=== PATIENT | female | born 1945 | race African-American/Black ===

== ENCOUNTER 2016-07-03 16:57 | Emergency (ER) | payer MEDICARE, OTHER ==
[2016-07-03] MEDS ORDERED: Aspirin Low Dose CHEW TAB* 81 MG PO ONE (17:20)
[2016-07-03] MEDS ORDERED: Adenosine* 3 MG/ML VIAL ONE (17:33)
--- NOTE | 2016-07-03 17:58 | RAD ---
Indication: Supraventricular tachycardia. Single frontal view of the chest performed at 1732 hours was reviewed. Comparison is made with previous exam dated March 16, 2015. No mediastinal shift is noted. Heart is at the upper limits of normal in size. Lung giron appear clear. No pleural fluid, pneumonia or pneumothorax is noted. IMPRESSION: NO ACTIVE CARDIOPULMONARY DISEASE IS NOTED.
[2016-07-03 18:19] LABS: Hematocrit 42 % (35-47); Hemoglobin 13.9 g/dl (12.0-16.0); Mean Corpuscular HGB Conc 33 g/dl (31-36); Mean Corpuscular Hemoglobin 31 pg (27-31); Mean Corpuscular Volume 94 fL (80-97); Mean Platelet Volume 8 um3 (7.4-10.4); Red Cell Distribution Width 15 % (10.5-15); White Blood Count 6.9 10^3/ul (3.5-10.8)
[2016-07-03] MEDS ORDERED: Adenosine* 3 MG/ML VIAL IV PUSH ONE (18:29)
[2016-07-03 18:32] LABS: Albumin 4.2 g/dL (3.2-5.2); BUN/Creatinine Ratio 17.5 (8-20); Calcium 9.5 mg/dL (8.6-10.3); EGFR African American 72.4 (>60); EGFR Non-African American 56.3 (>60); Globulin 2.8 g/dL (2-4); Potassium 3.9 mmol/L (3.5-5.0); Total Bilirubin 1.1 mg/dL (0.2-1.0)
[2016-07-03 18:41] LABS: Troponin I 0.04 ng/mL (<0.04)
[2016-07-03 18:43] LABS: TSH (Thyroid Stimulating Horm) 2.34 mcIU/mL (0.34-5.60)
[2016-07-03 18:49] LABS: Free T4 1.09 ng/dL (0.61-1.12)
[2016-07-03 19:36] VITALS: BP 100/61
--- NOTE | 2016-07-12 11:08 | ED ---
Nupur Og Matthew, scribed for Jason Carey MD on 07/03/16 at 1819 . Palpitations / Dysrhythmia - HPI Summary HPI Summary: A 71 y/o female presents to the ED with palpitations since early in the morning today. The patient had a similar episodes on 06/30/16 and yesterday. The patient has had similar episodes in the past and is prescribed metoprolol by her PCP. Associated symptoms include diarrhea, chest pain - described as pressure, lightheadedness, and SOB. She has an appointment with Dr. Wayne on July 16. - History of Current Complaint Chief Complaint: EDDysrhythmPalp Time Seen by Provider: 07/03/16 17:20 Hx Obtained From: Patient Onset/Duration: Sudden Onset, Lasting Days, Still Present Timing: Constant Severity Initially: Moderate Severity Currently: Moderate Character: Fast Associated Signs & Symptoms: Lightheadedness, Chest Pain - described as pressure , Shortness of Breath - Allergy/Home Medications Allergies/Adverse Reactions: Allergies Allergy/AdvReac Type Severity Reaction Status Date / Time No Known Allergies Allergy Verified 03/16/15 09:01 PMH/Surg Hx/FS Hx/Imm Hx Endocrine/Hematology History: Reports: Hx Thyroid Disease Denies: Hx Diabetes Cardiovascular History: Reports: Hx Hypertension Respiratory History: Denies: Hx Asthma, Hx Chronic Obstructive Pulmonary Disease (COPD) GI History: Denies: Hx Ulcer - Cancer History Hx Chemotherapy: No Hx Radiation Therapy: No - Surgical History Surgery Procedure, Year, and Place: 2007 small bowel obstruction Infectious Disease History: No Infectious Disease History: Reports: Hx Shingles Denies: Hx Hepatitis, Hx Human Immunodeficiency Virus (HIV), History Other Infectious Disease, Traveled Outside the [place] in Last 30 Days - Family History Family History: No FHx of breast CA - Social History Alcohol Use: Rare Substance Use Type: Reports: None Smoking Status (MU): Never Smoked Tobacco Review of Systems Constitutional: Negative Negative: Fever, Chills Eyes: Negative Negative: Erythema ENT: Negative Negative: Sore Throat Positive: Palpitations, Chest Pain - described as pressure Respiratory: Negative Negative: Shortness Of Breath Gastrointestinal: Negative Positive: Diarrhea. Negative: Abdominal Pain, Vomiting, Nausea Genitourinary: Negative Negative: dysuria, hematuria Musculoskeletal: Negative Negative: Myalgia, Edema Skin: Negative Negative: Rash Neurological: Other - lightheadedness Psychological: Normal All Other Systems Reviewed And Are Negative: Yes Physical Exam Triage Information Reviewed: Yes Vital Signs On Initial Exam: Initial Vitals Temp Pulse Resp BP Pulse Ox 97.5 F 162 22 97/71 100 07/03/16 16:58 07/03/16 16:58 07/03/16 16:58 07/03/16 16:58 07/03/16 16:58 Vital Signs Reviewed: Yes Appearance: Positive: Well-Appearing, No Pain Distress Skin: Positive: Warm, Dry Head/Face: Positive: Other - Normocephalic; Atraumatic Eyes: Positive: Conjunctiva Clear Neck: Positive: No Lymphadenopathy, Other: - Full ROM; No JVD Respiratory/Lung Sounds: Positive: Breath Sounds Present, Other - Normal Effort. Negative: Rales, Rhonchi, Stridor, Tracheal Deviation, Wheezes Cardiovascular: Positive: Pulses are Symmetrical in both Upper and Lower Extremities, Tachycardia Abdomen Description: Positive: Nontender, Soft, Other: - NO rebound. Negative: Distended, Guarding Bowel Sounds: Positive: Present Musculoskeletal: Negative: Edema Left, Edema Right Neurological: Positive: Alert, Oriented to Person Place, Time Psychiatric: Positive: Affect/Mood Appropriate Diagnostics - Vital Signs Vital Signs Temp Pulse Resp BP Pulse Ox 07/03/16 16:58 97.5 F 162 22 97/71 100 - Laboratory Result Diagrams: 07/03/16 17:30 07/03/16 17:30 Lab Statement: Any lab studies that have been ordered have been reviewed, and results considered in the medical decision making process. - Radiology CXR Xray Interpretation: No Acute Changes - IMPRESSION: NO ACTIVE CARDIOPULMONARY DISEASE IS NOTED. Radiology Interpretation Completed By: Radiologist - EKG 17:42 Cardiac Rate: NL - 73 bpm EKG Rhythm: Sinus Rhythm ST Segment: Normal Ectopy: PVCs - Occasional 17:05 Cardiac Rate: Tachycardia - 151 bpm EKG Rhythm: SVT EKG Interpretation: No STEMI Course/Dx - Course Assessment/Plan: A 71 y/o female presents to the ED with palpitations since early in the morning today. She has had these episodes in the past and has needed to present to the ED. She is prescribed Metoprolol by her PCP. Labs were reviewed. EKG showed SVT at 151 bpm. In the ED course, the patient was given adenosine and her heart rate stabilized in the 100s. The second EKG showed sinus rhythm at 73 bpm. Discussed the case with Dr. Mcguire who recommended the patient take Metoprolol XL in the morning. She will be discharged home to follow -up with her PCP in 2 days. - Diagnoses Provider Diagnoses: SVT (supraventricular tachycardia) Discharge - Discharge Plan Condition: Stable Disposition: HOME Patient Education Materials: Supraventricular Tachycardia (ED) Referrals: Cesilia Suazo MD [Primary Care Provider] - 2 Days Additional Instructions: Please follow-up with your primary care physician in 2 days. Begin taking your Metoprolol XL in the morning. The documentation as recorded by the Nupur rabago Matthew accurately reflects the service I personally performed and the decisions made by me, Jason Carey MD.
== END 2016-07-03 19:15 | disposition home or self-care (01) ==
LOC: ED 16:57
DX: I47.1 Supraventricular tachycardia (principal); R42 Dizziness and giddiness; R07.9 Chest pain, unspecified; R06.02 Shortness of breath; R00.2 Palpitations
CPT/HCPCS: 36415; 71010; 80053; 83605; 84439; 84443; 84484; 85025; 93005; 96374; 99284; A9270-GY; J0153

== ENCOUNTER 2016-07-04 15:54 | Inpatient (IN) | payer MEDICARE, OTHER ==
[2016-07-04] MEDS ORDERED: NS 0.9% 1000 ML* 2,000 ML IV ONE (16:18)
[2016-07-04] MEDS ORDERED: Adenosine* 3 MG/ML VIAL IV PUSH ONE (16:19)
[2016-07-04 16:36] LABS: Hematocrit 43 % (35-47); Hemoglobin 14.1 g/dl (12.0-16.0); Mean Corpuscular HGB Conc 33 g/dl (31-36); Mean Corpuscular Hemoglobin 31 pg (27-31); Mean Corpuscular Volume 94 fL (80-97); Mean Platelet Volume 8 um3 (7.4-10.4); Red Blood Count 4.58 10^6/ul (4.0-5.4); Red Cell Distribution Width 15 % (10.5-15); White Blood Count 5.5 10^3/ul (3.5-10.8)
[2016-07-04] MEDS ORDERED: Metoprolol Tartrate IV* 1 MG/ML 5 ML VIAL IV ONE (16:45)
[2016-07-04 16:52] LABS: ALT 34 U/L (7-52); AST 34 U/L (13-39); Albumin 4.1 g/dL (3.2-5.2); Alkaline Phosphatase 75 U/L (34-104); Anion Gap 9 mmol/L (2-11); BUN/Creatinine Ratio 17.7 (8-20); Blood Urea Nitrogen 17 mg/dL (6-24); C Reactive Protein < 1.00 mg/L (< 5.00); CO2 Carbon Dioxide 22 mmol/L (22-32); Calcium 9.5 mg/dL (8.6-10.3); Chloride 109 mmol/L (101-111); Creatine Kinase 127 U/L (10-223); EGFR African American 73.3 (>60); Globulin 2.8 g/dL (2-4); Glucose 117 mg/dL (70-100); Lipase 30 U/L (11.0-82.0); Magnesium 1.9 mg/dL (1.9-2.7); Potassium 3.8 mmol/L (3.5-5.0); Sodium 140 mmol/L (133-145); Total Protein 6.9 g/dL (6.4-8.9)
[2016-07-04 16:53] LABS: Troponin I 0.03 ng/mL (<0.04)
[2016-07-04] MEDS ORDERED: Diltiazem IV VIAL* 125 MG/25 ML VIAL ONE (17:04)
[2016-07-04] MEDS ORDERED: Diltiazem IV* 5 MG/ML 5 ML VIAL (for loading dose/IV Push) (25 MG) IV SLOW PU ONE (17:16)
[2016-07-04 17:19] LABS: TSH (Thyroid Stimulating Horm) 1.45 mcIU/mL (0.34-5.60)
[2016-07-04] MEDS ORDERED: Metoprolol Tartrate IV* 1 MG/ML 5 ML VIAL IV PRN (17:48)
[2016-07-04] MEDS ORDERED: NS 0.9% 500 ML BAG* 500 ML IV ONE (17:51)
[2016-07-04] MEDS ORDERED: Potassium Chlor TAB* 20 MEQ TAB.ER PO ONE (17:52)
[2016-07-04] MEDS ORDERED: Magnesium Oxide TAB* 400 MG PO ONE (17:52)
[2016-07-04] MEDS ORDERED: Diltiazem IV VIAL* 125 MG in D5W 100 ML BAG* 100 ML IV SCH (18:00)
[2016-07-04] MEDS ORDERED: Albuterol 2.5 MG/3 ML NEB.SOL* (0.083%) INH PRN (18:07)
[2016-07-04] MEDS ORDERED: Mometasone/Formoter 200/5 MDI INH PRN (18:07)
--- NOTE | 2016-07-04 19:57 | ED ---
Chaya Og Erika, scribed for Reid Chi MD on 07/04/16 at 1728 . Palpitations / Dysrhythmia - HPI Summary HPI Summary: Patient is a 71-year-old female presenting to the ED with a CC of palpitations starting at 15:30 today. Patient reports that she has had similar symptoms for the past few days, and was seen here and given adenosine, but symptoms returned. Associated symptoms include lightheadedness and SOB. Patient denies chest pain. Pt denies Hx CHF, and denies recent illness. Patient has an appointment with Dr. Wayne on 07/15/2016, but has not seen him before. - History of Current Complaint Chief Complaint: EDDysrhythmPalp Time Seen by Provider: 07/04/16 16:11 Hx Obtained From: Patient Onset/Duration: Lasting Hours, Still Present Timing: Constant Severity Currently: Moderate Alleviating: Nothing Associated Signs & Symptoms: Lightheadedness, Shortness of Breath - Allergy/Home Medications Allergies/Adverse Reactions: Allergies Allergy/AdvReac Type Severity Reaction Status Date / Time No Known Allergies Allergy Verified 03/16/15 09:01 Home Medications: Home Medications Albuterol 2.5MG/3ML (0.083%)* [Ventolin 2.5 MG/3 ML NEB.KIM*] 2.5 mg INH QID PRN 07/04/16 [History Confirmed 07/04/16] Albuterol Sulfate [Proair Respiclick] 2 puff INH QID PRN 07/04/16 [History Confirmed 07/04/16] Atorvastatin* [Lipitor*] 20 mg PO DAILY 07/04/16 [History Confirmed 07/04/16] Fluticasone NASAL SPRAY 50MCG* [Flonase NASAL SPRAY 50MCG*] 2 spray BOTH NARES DAILY 07/04/16 [History Confirmed 07/04/16] Ipratropium [place] (Nasal) [Ipratropium [place]] 0.03 % BOTH NARES QID PRN [History Confirmed 07/04/16] Levothyroxine TAB* [Synthroid TAB*] 50 mcg PO DAILY 07/04/16 [History Confirmed 07/04/16] Mometasone/Formoter 200/5 MDI* [Dulera 200/5 MDI*] 2 puff INH BID PRN 07/04/16 [ History Confirmed 07/04/16] Sertraline* [Zoloft*] 75 mg PO DAILY 07/04/16 [History Confirmed 07/04/16] PMH/Surg Hx/FS Hx/Imm Hx Endocrine/Hematology History: Reports: Hx Thyroid Disease Denies: Hx Diabetes Cardiovascular History: Reports: Hx Hypertension Respiratory History: Denies: Hx Asthma, Hx Chronic Obstructive Pulmonary Disease (COPD) GI History: Denies: Hx Ulcer - Cancer History Hx Chemotherapy: No Hx Radiation Therapy: No - Surgical History Surgery Procedure, Year, and Place: 2007 small bowel obstruction Infectious Disease History: No Infectious Disease History: Reports: Hx Shingles Denies: Hx Hepatitis, Hx Human Immunodeficiency Virus (HIV), History Other Infectious Disease, Traveled Outside the [place] in Last 30 Days - Family History Family History: No FHx breast cancer - Social History Alcohol Use: Rare Substance Use Type: Reports: None Smoking Status (MU): Former Smoker Review of Systems Positive: Palpitations. Negative: Chest Pain Positive: Shortness Of Breath Neurological: Other - lightheadedness All Other Systems Reviewed And Are Negative: Yes Physical Exam Triage Information Reviewed: Yes Vital Signs On Initial Exam: Initial Vitals Temp Pulse Resp BP Pulse Ox 97.2 F 167 24 129/76 100 07/04/16 15:56 07/04/16 15:56 07/04/16 15:56 07/04/16 15:56 07/04/16 15:56 Vital Signs Reviewed: Yes Appearance: Positive: Well-Appearing, No Pain Distress Skin: Positive: Warm, Skin Color Reflects Adequate Perfusion, Dry Head/Face: Positive: Normal Head/Face Inspection Eyes: Positive: EOMI, DARYN ENT: Positive: Normal ENT inspection Neck: Positive: Supple, Nontender Respiratory/Lung Sounds: Positive: Clear to Auscultation, Breath Sounds Present Cardiovascular: Positive: Tachycardia - at 167 bpm on triage Abdomen Description: Positive: Nontender, Soft Bowel Sounds: Positive: Present Musculoskeletal: Positive: Normal, Strength/ROM Intact Neurological: Positive: Normal, Sensory/Motor Intact, Alert, Oriented to Person Place, Time Psychiatric: Positive: Anxious Diagnostics - Vital Signs Vital Signs Temp Pulse Resp BP Pulse Ox 07/04/16 15:56 97.2 F 167 24 129/76 100 - Laboratory Lab Results: Lab Results 07/04/16 07/04/16 07/04/16 Range/Units 16:22 16:22 16:22 WBC 5.5 (3.5-10.8) 10^3/ul RBC 4.58 (4.0-5.4) 10^6/ul Hgb 14.1 (12.0-16.0) g/dl Hct 43 (35-47) % MCV 94 (80-97) fL MCH 31 (27-31) pg MCHC 33 (31-36) g/dl RDW 15 (10.5-15) % Plt Count 231 (150-450) 10^3/ul MPV 8 (7.4-10.4) um3 Neut % (Auto) 30.7 L (38-83) % Lymph % (Auto) 53.9 H (25-47) % [place] % (Auto) 12.3 H (1-9) % Eos % (Auto) 1.8 (0-6) % Baso % (Auto) 1.3 (0-2) % Absolute Neuts (auto) 1.7 (1.5-7.7) 10^3/ul Absolute Lymphs (auto) 3.0 (1.0-4.8) 10^3/ul Absolute Monos (auto) 0.7 (0-0.8) 10^3/ul Absolute Eos (auto) 0.1 (0-0.6) 10^3/ul Absolute Basos (auto) 0.1 (0-0.2) 10^3/ul Absolute Nucleated RBC 0.01 10^3/ul Nucleated RBC % 0.2 INR (Anticoag Therapy) 0.90 (0.89-1.11) APTT 27.0 (26.0-36.3) seconds D-Dimer, Quantitative 674 H (Less Than 230) ng/mL Sodium 140 (133-145) mmol/L Potassium 3.8 (3.5-5.0) mmol/L Chloride 109 (101-111) mmol/L Carbon Dioxide 22 (22-32) mmol/L Anion Gap 9 (2-11) mmol/L BUN 17 (6-24) mg/dL Creatinine 0.96 H (0.51-0.95) mg/dL Est GFR ( Amer) 73.3 (>60) Est GFR (Non-Af Amer) 57.0 (>60) BUN/Creatinine Ratio 17.7 (8-20) Glucose 117 H (70-100) mg/dL Lactic Acid (0.5-2.0) mmol/L Calcium 9.5 (8.6-10.3) mg/dL Magnesium 1.9 (1.9-2.7) mg/dL Total Bilirubin 1.30 H (0.2-1.0) mg/dL AST 34 (13-39) U/L ALT 34 (7-52) U/L Alkaline Phosphatase 75 (34-104) U/L Total Creatine Kinase 127 (10-223) U/L CK-MB (CK-2) 5.4 (0.6-6.3) ng/mL Troponin I 0.03 (<0.04) ng/mL C-Reactive Protein < 1.00 (< 5.00) mg/L B-Natriuretic Peptide ( - 100) pg/mL Total Protein 6.9 (6.4-8.9) g/dL Albumin 4.1 (3.2-5.2) g/dL Globulin 2.8 (2-4) g/dL Albumin/Globulin Ratio 1.5 (1-3) Lipase 30 (11.0-82.0) U/L TSH 1.45 (0.34-5.60) mcIU/mL 07/04/16 07/04/16 Range/Units 16:22 16:22 WBC (3.5-10.8) 10^3/ul RBC (4.0-5.4) 10^6/ul Hgb (12.0-16.0) g/dl Hct (35-47) % MCV (80-97) fL MCH (27-31) pg MCHC (31-36) g/dl RDW (10.5-15) % Plt Count (150-450) 10^3/ul MPV (7.4-10.4) um3 Neut % (Auto) (38-83) % Lymph % (Auto) (25-47) % [place] % (Auto) (1-9) % Eos % (Auto) (0-6) % Baso % (Auto) (0-2) % Absolute Neuts (auto) (1.5-7.7) 10^3/ul Absolute Lymphs (auto) (1.0-4.8) 10^3/ul Absolute Monos (auto) (0-0.8) 10^3/ul Absolute Eos (auto) (0-0.6) 10^3/ul Absolute Basos (auto) (0-0.2) 10^3/ul Absolute Nucleated RBC 10^3/ul Nucleated RBC % INR (Anticoag Therapy) (0.89-1.11) APTT (26.0-36.3) seconds D-Dimer, Quantitative (Less Than 230) ng/mL Sodium (133-145) mmol/L Potassium (3.5-5.0) mmol/L Chloride (101-111) mmol/L Carbon Dioxide (22-32) mmol/L Anion Gap (2-11) mmol/L BUN (6-24) mg/dL Creatinine (0.51-0.95) mg/dL Est GFR ( Amer) (>60) Est GFR (Non-Af Amer) (>60) BUN/Creatinine Ratio (8-20) Glucose (70-100) mg/dL Lactic Acid 2.5 H* (0.5-2.0) mmol/L Calcium (8.6-10.3) mg/dL Magnesium (1.9-2.7) mg/dL Total Bilirubin (0.2-1.0) mg/dL AST (13-39) U/L ALT (7-52) U/L Alkaline Phosphatase (34-104) U/L Total Creatine Kinase (10-223) U/L CK-MB (CK-2) (0.6-6.3) ng/mL Troponin I (<0.04) ng/mL C-Reactive Protein (< 5.00) mg/L B-Natriuretic Peptide 300 H ( - 100) pg/mL Total Protein (6.4-8.9) g/dL Albumin (3.2-5.2) g/dL Globulin (2-4) g/dL Albumin/Globulin Ratio (1-3) Lipase (11.0-82.0) U/L TSH (0.34-5.60) mcIU/mL Result Diagrams: 07/04/16 16:22 07/04/16 16:22 Lab Statement: Any lab studies that have been ordered have been reviewed, and results considered in the medical decision making process. - EKG 16:05 Cardiac Rate: Tachycardia - at 160 bpm EKG Rhythm: SVT 16:33 Cardiac Rate: NL - at 68 bpm EKG Rhythm: Sinus Rhythm Ectopy: PVCs, PACs EKG Interpretation: ST elevation in V1 and V2 16:35 Cardiac Rate: NL - at 67 bpm EKG Rhythm: Sinus Rhythm Ectopy: PACs EKG Interpretation: ST elevation in V1 and V2 17:27 Cardiac Rate: Bradycardia - at 48 bpm EKG Rhythm: Sinus Bradycardia Ectopy: None EKG Interpretation: ST elevation V1 and V2. Flipped T waves in III and aVF Re-Evaluation - Re-Evaluation First Eval Re-Evaluation Time: 16:30 Comment: Present for adenosine Course/Dx - Course Assessment/Plan: DR MANDUJANO SAW PATIENT IN ED. ADMIT HOSPITALIST STABLE. - Diagnoses Provider Diagnoses: SVT (supraventricular tachycardia) - Physician Notifications Discussed Care Of Patient With: Dr. Mandujano (cardiology) at 16:45 - recommends admission. Dr. Muro (hospitalist) at 16:49 - agrees to admit - Critical Care Time Critical Care Time: 30-74 min Discharge - Discharge Plan Condition: Stable Disposition: ADMITTED TO [facility] documentation as recorded by the Chaya rabago Erika accurately reflects the service I personally performed and the decisions made by me, Reid Chi MD.
[2016-07-04] MEDS: Enoxaparin(*) 40 MG/0.4 ML SYR SUBCUT SCH (21:06)
[2016-07-04] MEDS: Diltiazem CD CAP* 120 MG PO SCH (21:06)
--- NOTE | 2016-07-04 23:32 | CONS ---
CARDIOLOGY CONSULTATION: DATE OF CONSULT: 07/04/16 PRIMARY DOCTOR: Dr. Suazo. CONSULTING PHYSICIAN: Dr. Chi. REASON FOR EVALUATION: SVTs with symptoms. HISTORY OF PRESENT ILLNESS: This is a very pleasant 71-year-old woman with a longstanding history of intermittent palpitation dating back more than 25 years. She says these can occur several times in a day and then not again for a month or two. They usually last a few minutes and resolve. She has some mild lightheadedness and shortness of breath with them. However, they have been coming more frequent over the last week or so. She has been treated with Toprol 100 mg a day for many years. She does not think it has been very successful in controlling her symptoms. Last Saturday, it lasted all day and then resolved on its own. Yesterday, it occurred again all day and she came to the emergency room. She was found to be in SVT, was given adenosine, and told to take a Toprol in the morning rather than in the evening. She went home and woke up today, had a breakfast, and then had some jam. About midday at about 0330, started to feel racing heartbeat, lightheadedness, dizziness, shortness of breath, no chest discomfort. Because of symptoms, she came to the emergency room was found to be in SVT. She was given Adenocard 6 mg but converted right back to SVT after only a minute or two in sinus rhythm. She subsequently was given IV Lopressor 5 mg and a repeat challenge with adenosine. Again, she only converted to sinus rhythm for a short period of time. Subsequently, I gave her IV diltiazem 20 mg IV bolus and then 5 mg an hour drip and she has converted to and maintained an atrial rhythm with what appears to be an ectopic atrial bradycardia at 48 with rsr prime in V1, V2. She is feeling better now. She has had no coffee in the last 4 days, but was having a cup occasionally. She denies alcohol use. She has a history of tobacco use discontinued in 2007. She has a history of diet controlled diabetes and a history of asthma. PAST MEDICAL HISTORY: Includes small bowel obstruction in 2007. She had a thyroidectomy many years ago. She said she had some mild diarrhea yesterday, but no fevers, chills, sweats. No hematemesis, hematochezia. No dysuria. No abdominal pain. No orthopnea. No peripheral edema. MEDICATIONS: Include: 1. Atrovent. 2. Fluticasone. 3. Levothyroxine 50 mcg a day. 4. Atorvastatin 20 mg a day. 5. Zoloft 75 mg a day. 6. Metoprolol XL succinate 100 mg q.a.m. SOCIAL HISTORY: She said she is pretty active and lives on her own. She does not drive, but takes [employer] or [employer] and walks around the mall for hours at a time. Shopping and walks and takes care of her own chores in household. She is single, lives alone. She has 4 adult children, 2 boys and 2 girls. Her daughter, Christine, and her son, Ramon, were at the bedside. REVIEW OF SYSTEMS: Review of systems x10 was negative except as above. PHYSICAL EXAMINATION: She is a well-developed, well-nourished female, - [place], in no apparent distress. Pulse of 51, blood pressure 121/68, O2 sats 100% on room air. Atraumatic, normocephalic. Extraocular muscles are intact. Sclerae anicteric. No significant JVD. Cardiac: S1, S2. No clear murmurs, gallops, or rubs. Chest was clear with decreased breath sounds with prolonged expiratory phase. No CVAT. Abdomen: Bowel sounds present. Nontender. No hepatosplenomegaly. Extremities: Femoral pulses intact without bruits. Distal pulses intact. No edema. Motor strength 5/5 bilaterally. Deep tendon reflexes are 2/4. Alert and oriented x3. DIAGNOSTIC STUDIES/LAB DATA: Labs include normal CBC. Sodium of 140, potassium at 3.8, down from 3.9 yesterday. Lactic acid elevated at 2.5. BUN is 17, creatinine of 0.96. CRP of less than 1. BNP of 300. D-dimer is 674. White count of 5.5, hemoglobin of 14.1, hematocrit of 43, platelet count 234. Chest x-ray from yesterday revealed no active cardiopulmonary disease. Pulmonary function test from 05/30/15 revealed evidence of air trapping, diffuse and mildly decreased, significant improvement in small airways in response to bronchodilators, not suggestive of obstructive or respiratory defect. She had an echocardiogram in 2008. The report is not available at this time. Her EKG reveals narrow complex tachycardia with nonspecific ST depressions at 154, possible T-waves following the QRS with a short RP interval raising the possibility of AV castro reentry tachycardia. EKG from 03/16/15 revealed sinus bradycardia with an RSR prime in V1 and actual similar complexes , but less T-wave flattening at that time. IMPRESSION: My impression is that Ms. Bermudez appears to have paroxysmal supraventricular tachycardia, which is symptomatic and longstanding but appears to be increased recently for no obvious reason. She does not appear to be adequately controlled on her Toprol and she did seem to respond to the diltiazem. I did discuss with her and her family potential treatment options including adjustment of her medications with using diltiazem and perhaps digoxin as well as possible antiarrhythmics or referral for EP study and ablation. At this point, I recommend the followin. We will try tapering her slowly off her beta-rashaun, decreasing her Toprol to 25 mg twice a day. 2. We will add a low dose of oral diltiazem 120 CD and gradually taper her off her IV diltiazem. 3. We will have to watch for hypotension and bradycardia. 4. If she failed to have control of her symptoms with that regimen, we will have to consider advancing her diltiazem or perhaps adding digoxin. 5. We will consider the possibility of referral for EP evaluation as an outpatient. 6. I would try to maintain a potassium over 4. 7. I would obtain an echo. 8. She did have an elevated D-dimer of unclear etiology. We will discuss with Dr. Camejo and consider possibility of further evaluation as needed. Given her lack of hypoxemia or cp or other evidence of PE, would follow for now. 9. The EKG changes of tachycardia are nonspecific but at some point, it make the worth considering a screen for ischemia with a pharmacologic stress test. [id number]/[facility] #: [id number] [facility]ENTER[facility]oe
--- NOTE | 2016-07-05 01:27 | HP ---
HISTORY AND PHYSICAL: DATE OF ADMISSION: 07/04/16 PRIMARY CARE PHYSICIAN: Cesilia Suazo MD CHIEF COMPLAINT: Palpitations. HISTORY OF PRESENT ILLNESS: Ms. Bermudez is a pleasant 71-year-old female with a past medical history of SVT, diet-controlled diabetes, depression, hypothyroidism, who presents to the hospital with palpitations. The patient states that she has had a diagnosis of SVT since the . She used to get palpitations about every 3 months or so and they would usually resolve on their own. She takes Toprol-XL 100 mg by mouth daily at home for this. She has noted over the past few months that palpitations have become more and more frequent, now happening multiple times a week. Four days ago, the patient awoke on her birthday and immediately noticed that she had palpitations. She states that she took her medications as indicated and palpitations lasted all day and eventually stopped around 10 p.m. The following day, she had another episode that lasted about an hour. Yesterday in the early afternoon, she had another episode. She came to the emergency department and was found to be in SVT. She received adenosine which broke the rhythm. She was instructed to take her Toprol in the morning instead of at night. She was discharged home. She took her Toprol as instructed this morning ; then around 3:30 p.m., she noticed that the palpitations began again. When they did not resolve, she decided to come back to the emergency room again as she was instructed to. She states that with the palpitations, she does not have any chest pain, perhaps some pressure, shortness of breath, some dizziness , sweatiness, and nausea. Denies any emesis. She states that she saw Dr. Suazo recently for this and was referred to Dr. Wayne; however, her appointment is in early July. In the emergency department, the patient was noted to be in SVT again with heart rates in the 150s to 160s. In the emergency department, the patient received adenosine which broke the rhythm briefly; however, she then received metoprolol 5 mg IV and an additional adenosine without improvement. Dr. Mandujano was consulted and the patient received 20 mg diltiazem and was started on a drip with improvement in her rhythm back to sinus rhythm with some mild bradycardia. Hospitalist service was consulted to admit the patient on observation status to monitor her for any further arrhythmias. PAST MEDICAL HISTORY: SVT, diet-controlled diabetes, hyperlipidemia, hypothyroidism, depression. PAST SURGICAL HISTORY: Partial thyroidectomy, bowel surgery in 2007. ALLERGIES: The patient reports no known drug allergies. FAMILY HISTORY: Significant for father with CAD. Mother with kidney cancer. Maternal aunt with cancer. A daughter with diabetes and endstage renal disease , who is currently on dialysis. SOCIAL HISTORY: The patient lives alone and is independent. She states she smoked for about 40 years about a quarter of a pack per day. Denies any alcohol use. She states she will occasionally have coffee and caffeinated beverages; however, this is fairly rare. Denies any illicit drug use. REVIEW OF SYSTEMS: A 12-point review of systems negative except for that as noted in the HPI. PHYSICAL EXAMINATION GENERAL: The patient is an elderly -[place] female, appears younger than stated age, lying in bed in no apparent distress. VITAL SIGNS: On admission, temperature 97.2, heart rate of 167, respiratory rate of 24, O2 saturation of 100% on room air, blood pressure 129/76. HEENT: Pupils are equal, round, and reactive to light and accommodation. Anicteric sclerae. Moist mucous membranes. LUNGS: Clear to auscultation bilaterally. No wheezes, rales or rhonchi. CARDIOVASCULAR: Bradycardia, regular rhythm. A murmur is felt throughout. ABDOMEN: Soft, nontender, nondistended. Bowel sounds are positive. EXTREMITIES: No cyanosis, clubbing, or edema. NEUROLOGIC: The patient is alert and oriented x3. No focal neurological deficits. LABS AND DIAGNOSTICS: White blood cell count of 5.5, hemoglobin of 14.1, hematocrit of 43, platelets of 231. INR of 0.9. D-dimer of 674. Sodium of 140 , potassium 3.8, chloride of 109, carbon dioxide 22, BUN of 17, creatinine of 0.96, glucose of 117, lactic acid 2.5, calcium 9.5, magnesium 1.9, total bilirubin of 1.3. LFTs are within normal limits. Troponin of 0.03. B- natriuretic peptide of 300. TSH of 1.45. EKG shows SVT with subsequent EKG showing resolution in the sinus bradycardia. ASSESSMENT AND PLAN: SVT in a 71-year-old female with a past medical history of SVT, diet-controlled diabetes, hyperlipidemia, depression, hypothyroidism. 1. SVT, appreciate Cardiology assistance. The patient broke with IV diltiazem and was started on drip of 5 mg per hour. We will start the patient on long- acting Cardizem tonight at 120 mg and we will try to wean the drip off subsequent to this dose. We will continue the patient on a lower dose of metoprolol at Toprol 25 mg by mouth 2 times daily beginning tomorrow morning. We will repeat the patient's magnesium and potassium. Dr. Mandujano has seen the patient and ordered an echocardiogram, noted that the patient's D-dimer was elevated; however, her Wells score is 1.5, placing her at low risk and actually with age adjustment, D-dimer is not that significantly elevated. I think PE is unlikely as the patient is asymptomatic between her episodes of SVT without any shortness of breath and has had no chest pain. 2. Lactic acidosis. The patient's lactate is slightly elevated likely due to some hypoperfusion. The patient received some IV fluids in the emergency department. We will continue with 500 cc of IV fluids and we will recheck a lactate in the morning. 3. Hypothyroidism. Continue home Synthroid. 4. Hyperlipidemia. Continue atorvastatin. 5. Depression. Continue Zoloft. 6. DVT prophylaxis. Lovenox subcu. 7. Code status. The patient is a full code. TIME SPENT: Total time spent on this admission 50 minutes, with over half the time spent [id number] with the patient, counseling and coordinating care. CC: Cesilia Suazo MD; Taras Wayne MD* [id number]/[facility] #: [id number] [facility]
[2016-07-05 05:46] LABS: Albumin 3.5 g/dL (3.2-5.2); BUN/Creatinine Ratio 18.6 (8-20); Calcium 8.5 mg/dL (8.6-10.3); EGFR African American 105.5 (>60); Globulin 2.3 g/dL (2-4); Magnesium 1.8 mg/dL (1.9-2.7); Total Bilirubin 1.5 mg/dL (0.2-1.0); Total Protein 5.8 g/dL (6.4-8.9)
[2016-07-05] MEDS: Levothyroxine TAB* 50 MCG TAB PO SCH (06:19)
[2016-07-05] MEDS ORDERED: Magnesium Oxide TAB* 400 MG PO ONE (07:17)
[2016-07-05 07:36] LABS: Direct Bilirubin 0.2 mg/dL (0.03-0.18)
[2016-07-05] MEDS ORDERED: Metoprolol Succinate XL TAB* 25 MG PO SCH ×2 (09:00→09:09)
[2016-07-05] MEDS: Sertraline* 25 MG TAB PO SCH (09:40)
[2016-07-05] MEDS: Atorvastatin* 20 MG TAB PO SCH (09:40)
[2016-07-05] MEDS: Fluticasone NASAL SPRAY 50MCG* 16 gm SPRAY BTL BOTH NARES SCH (09:41)
[2016-07-05] MEDS ORDERED: Acetaminophen TAB* 325 MG PO PRN (11:35)
--- NOTE | 2016-07-05 12:56 | PN ---
Subjective Date of Service: 07/05/16 Interval History: Patient seen this morning. Denies any recurrence of palpitations. No chest pain , SOB. Reports some light-headedness when she stands. Family History: Unchanged from Admission Social History: Unchanged from Admission Past Medical History: Unchanged from Admission Objective Active Medications: Acetaminophen (Tylenol Tab*) 650 mg PO Q6H PRN Albuterol (Ventolin 2.5 Mg/3 Ml Neb.Ivett*) 2.5 mg INH QID PRN Atorvastatin Calcium (Lipitor*) 20 mg PO DAILY LOPEZ Diltiazem HCl (Cardizem Cd Cap*) 120 mg PO BEDTIME LOPEZ Enoxaparin Sodium (Lovenox(*)) 40 mg SUBCUT Q24H LOPEZ Fluticasone Propionate (Flonase Nasal [place] 50mcg*) 2 spray BOTH NARES DAILY LOPEZ Levothyroxine Sodium (Synthroid Tab*) 50 mcg PO DAILY@0600 LOPEZ Metoprolol Succinate (Toprol Xl Tab*) 25 mg PO DAILY LOPEZ Mometasone Furoate/Formoterol Fumar (Dulera 200/5 Mdi*) 2 puff INH BID PRN Sertraline HCl (Zoloft*) 75 mg PO DAILY LOPEZ Vital Signs 07/04/16 07/04/16 07/04/16 17:28 17:29 17:30 Temperature Pulse Rate 50 51 Respiratory Rate Blood Pressure 110/60 121/67 (mmHg) O2 Sat by Pulse 99 99 Oximetry 07/04/16 07/04/16 07/04/16 17:50 17:55 18:00 Temperature Pulse Rate 52 52 51 Respiratory Rate Blood Pressure 102/56 110/60 114/59 (mmHg) O2 Sat by Pulse 98 99 99 Oximetry 07/05/16 07/05/16 07/05/16 06:00 07:00 07:30 Temperature 98.5 F Pulse Rate 59 Respiratory 13 12 16 Rate Blood Pressure 120/57 (mmHg) O2 Sat by Pulse 96 Oximetry Oxygen Devices in Use Now: None Appearance: Elderly, AAF, laying in bed in NAD Eyes: No Scleral Icterus Ears/Nose/Mouth/Throat: Mucous Membranes Moist Neck: NL Appearance and Movements; NL JVP Respiratory: Symmetrical Chest Expansion and Respiratory Effort, Clear to Auscultation Cardiovascular: NL Sounds; No Murmurs; No JVD, - - Bradycardic Abdominal: NL Sounds; No Tenderness; No Distention Lymphatic: No Cervical Adenopathy Extremities: No Edema Skin: No Rash or Ulcers Neurological: Alert and Oriented x 3 Result Diagrams: 07/04/16 16:22 07/05/16 05:16 Additional Lab and Data: Assess/Plan/Problems-Billing Assessment: SVT in a 71 yo F with hx of SVT, HLD, diet-controlled DM, hypothyroidism - Patient Problems (1) SVT (supraventricular tachycardia) Current Visit: Yes Comment: Rhythm broke and sustained sinus with IV Cardizem in ED after attempts with adenosine and metoprolol. Transitioned to Cardizem 120 gm PO daily, off Cardizem gtt. Trying to wean off of Toprol, decreased to 25 mg PO BID, received dose this AM. Has been bradycardic in 50s. Will hold scheduled Toprol for now and may redose in AM. Continue Cardizem. Will check orthostatic vitals. Echo pending. Keep Mg and K repleted. May benefit from outpatient EP referral and stress test in the future. (2) Lactic acidosis Current Visit: Yes Comment: Resolved (3) Hypothyroidism Current Visit: Yes Comment: Continue home synthroid (4) HLD (hyperlipidemia) Current Visit: Yes Comment: Continue statin (5) Depression Current Visit: Yes Comment: Continue Zoloft (6) DVT prophylaxis Current Visit: Yes Comment: Lovenox (7) Full code status Current Visit: Yes Status and Disposition: Potential discharge later today or tomorrow
[2016-07-05 16:18] LABS: Urine Bacteria Absent (Absent); Urine Bilirubin Negative (Negative); Urine Glucose Negative (Negative); Urine Nitrite Negative (Negative)
[2016-07-05] MEDS: Enoxaparin(*) 40 MG/0.4 ML SYR SUBCUT SCH (18:30)
--- NOTE | 2016-07-05 18:31 | ECHO ---
Patient: NHAN BEDOLLA [facility] Rec#: [id number] : 1945 Date: 07/05/2016 Age: 71y Height: 172.7 cm / 68.0 in Weight: 72.6 kg / 160.0 lbs Sex: F BSA: 1.9 Room#: 452 Admit Date#: 07/04/2016 Type: Inpatient Referring: Vahid Mandujano MD Reading: Vahid Mandujano MD Beamster: Maureen Chávez RN RDCS CC: Cesilia Suazo MD Transthoracic Echocardiogram Indication: Dyspnea, SVT BP: 116/84 HR: 58 Rhythm: Bradycardia Findings History: HTN, thyroid disease, former smoker, SVT. Technical Comments: The study quality is fair. The study is technically limited due to poor apical windows. The study is technically limited due to the patient's smoking history. Completed at 1645. Left Ventricle: The left ventricular chamber size is normal. Mild concentric left ventricular hypertrophy is observed. Global left ventricular wall motion and contractility are within normal limits. There is normal left ventricular systolic function. The estimated ejection fraction is 60-65%. Abnormal left ventricular diastolic filling is observed, consistent with impaired relaxation. Left Atrium: The left atrium is mild to moderately dilated. Right Ventricle: The right ventricular chamber size and systolic function are within normal limits. The right ventricular global systolic function is normal. Right Atrium: The right atrium is mildly dilated. Aortic Valve: The aortic valve is trileaflet. The aortic valve leaflets are mildly thickened. There is no evidence of aortic regurgitation. There is no evidence of aortic stenosis. Mitral Valve: The mitral valve leaflets are mildly thickened. There is systolic bowing of the mitral valve without evidence of prolapse. There is mild to moderate mitral regurgitation. There is a small posterior jet as well as a central jet. There is no evidence of mitral stenosis. Tricuspid Valve: The tricuspid valve leaflets are normal. There is moderate tricuspid regurgitation. There is evidence of mild pulmonary hypertension. There is no tricuspid stenosis. Pulmonic Valve: The pulmonic valve appears normal. There is mild pulmonic regurgitation. There is no pulmonic stenosis. Pericardium: There is no significant pericardial effusion. A pericardial fat pad is visualized. Aorta: There is no dilatation of the ascending aorta. There is no dilatation of the aortic arch. There is no dilation of the aortic root. Pulmonary Artery: The main pulmonary artery appears normal. Venous: The inferior vena cava appears normal in size. There is a greater than 50% respiratory change in the inferior vena cava dimension. Summary: There was not any prior study for comparison. Conclusions Mild concentric left ventricular hypertrophy is observed. The estimated ejection fraction is 60-65%. Abnormal left ventricular diastolic filling is observed, consistent with impaired relaxation. The left atrium is mild to moderately dilated. The aortic valve leaflets are mildly thickened. There is systolic bowing of the mitral valve without evidence of prolapse. There is mild to moderate mitral regurgitation. There is mild pulmonic regurgitation. There is evidence of mild pulmonary hypertension. Measurements Name Value Normal Range RVIDd (AP) 2D 2.5 cm (0.9 - 2.6) RVDdMajor (2D) 3.7 cm (2.2 - 4.4) RAd ISD 4CH 5.1 cm (3.4 - 4.9) RA (A4C)W 4.2 cm (2.9 - 4.6) IVSd (2D) 1.1 cm (0.6 - 1) LVPWd (2D) 1.1 cm (0.6 - 1) LVIDd (2D) 4.3 cm (3.6 - 5.4) LVIDs (2D) 2.4 cm - LV FS (2D) 44 % (25 - 45) Aortic Annulus 1.9 cm (1.4 - 2.6) Ao root diameter (2D) 2.9 cm (2.1 - 3.5) Ascending Ao 2.9 cm (2.1 - 3.4) Aortic arch 2 cm (1.8 - 3.4) LA dimension (AP) 2D 4 cm (2.3 - 3.8) LAd ISD 4CH 4.9 cm (2.9 - 5.3) LA ISD 4CH W 4.3 cm (2.5 - 4.5) Name Value Normal Range LA ESV SP 4CH (A/L) 66 ml - LA ESV SP 2CH (A/L) 77 ml - LA ESV BP (A/L) 73 ml - LA ESV BP (A/L) index 39.2 ml/m2 - LA ESV SP 4CH (MOD) 62 ml - LA ESV SP 2CH (MOD) 75 ml - Name Value Normal Range MV E-wave Vmax 1.1 m/sec - MV deceleration time 215 msec - MV A-wave Vmax 0.87 m/sec - MV E:A ratio 1.3 ratio - LV septal e' Vmax 0.07 m/sec - LV lateral e' Vmax 0.1 m/sec - LV E:e' septal ratio 15.7 ratio - LV E:e' lateral ratio 11 ratio - Name Value Normal Range AV Vmax 1.2 m/sec - AV VTI 28.3 cm - AV peak gradient 6 mmHg - AV mean gradient 3 mmHg - LVOT Vmax 0.94 m/sec - LVOT VTI 18.2 cm - LVOT peak gradient 4 mmHg - LVOT mean gradient 2 mmHg - STEPHEN Vmax 0.72 m/sec - Name Value Normal Range TR Vmax 3.1 m/sec - TR peak gradient 38 mmHg - RAP 3 mmHg - RVSP 41 mmHg - IVC diameter 1.3 cm - Name Value Normal Range PV Vmax 0.79 m/sec -
[2016-07-05] MEDS: Diltiazem CD CAP* 120 MG PO SCH (20:58)
[2016-07-06] MEDS: Levothyroxine TAB* 50 MCG TAB PO SCH (05:25)
[2016-07-06 06:21] LABS: Albumin 3.6 g/dL (3.2-5.2); Calcium 8.9 mg/dL (8.6-10.3); EGFR African American 86.7 (>60); EGFR Non-African American 67.4 (>60); Globulin 2.3 g/dL (2-4); Total Bilirubin 1.4 mg/dL (0.2-1.0); Total Protein 5.9 g/dL (6.4-8.9)
[2016-07-06] MEDS: Atorvastatin* 20 MG TAB PO SCH (08:50)
[2016-07-06] MEDS: Fluticasone NASAL SPRAY 50MCG* 16 gm SPRAY BTL BOTH NARES SCH (08:53)
[2016-07-06] MEDS: Sertraline* 25 MG TAB PO SCH (08:53)
[2016-07-06] MEDS ORDERED: Metoprolol Succinate XL TAB* 25 MG PO SCH ×2 (09:00→18:00)
[2016-07-06] MEDS ORDERED: Potassium Chloride LIQUID* 20 MEQ PACKET PO ONE (11:29)
[2016-07-06 11:38] VITALS: BP 117/55
[2016-07-06] MEDS ORDERED: Metoprolol Tartrate IV* 1 MG/ML 5 ML VIAL ONE (17:03)
--- NOTE | 2016-07-06 17:23 | PN ---
Subjective Date of Service: 07/06/16 Interval History: Overnight events noted. NSVT noted. Patient seen this afternoon. Reports feeling a bit dizzy when she stands. Has been ambulating around the unit with her granddaughter this morning and did well although felt fatigued afterwards. No palpitations. Feels that she could do home today once stress test is done. Family History: Unchanged from Admission Social History: Unchanged from Admission Past Medical History: Unchanged from Admission Objective Active Medications: Acetaminophen (Tylenol Tab*) 650 mg PO Q6H PRN Albuterol (Ventolin 2.5 Mg/3 Ml Neb.Ivett*) 2.5 mg INH QID PRN Atorvastatin Calcium (Lipitor*) 20 mg PO DAILY LOPEZ Diltiazem HCl (Cardizem Cd Cap*) 120 mg PO BEDTIME LOPEZ Enoxaparin Sodium (Lovenox(*)) 40 mg SUBCUT Q24H LOPEZ Fluticasone Propionate (Flonase Nasal [place] 50mcg*) 2 spray BOTH NARES DAILY LOPEZ Levothyroxine Sodium (Synthroid Tab*) 50 mcg PO DAILY@0600 LOPEZ Mometasone Furoate/Formoterol Fumar (Dulera 200/5 Mdi*) 2 puff INH BID PRN Sertraline HCl (Zoloft*) 75 mg PO DAILY LOPEZ Vital Signs 07/05/16 07/05/16 07/05/16 19:53 23:21 23:24 Temperature 98.7 F 98.1 F Pulse Rate 56 56 Respiratory 16 20 Rate Blood Pressure 128/66 138/59 (mmHg) O2 Sat by Pulse 97 97 Oximetry 07/06/16 07/06/16 07/06/16 04:01 04:35 07:25 Temperature 98.3 F 98.3 F 98.2 F Pulse Rate 55 55 58 Respiratory 20 20 16 Rate Blood Pressure 118/58 118/58 135/72 (mmHg) O2 Sat by Pulse 95 95 97 Oximetry 07/06/16 11:23 Temperature 98.0 F Pulse Rate 57 Respiratory 18 Rate Blood Pressure 117/55 (mmHg) O2 Sat by Pulse 98 Oximetry Oxygen Devices in Use Now: None Appearance: Elderly, AAF, laying in bed in NAD Eyes: No Scleral Icterus Ears/Nose/Mouth/Throat: Mucous Membranes Moist Neck: NL Appearance and Movements; NL JVP Respiratory: Symmetrical Chest Expansion and Respiratory Effort, Clear to Auscultation Cardiovascular: NL Sounds; No Murmurs; No JVD, - - Bradycardia Abdominal: NL Sounds; No Tenderness; No Distention Lymphatic: No Cervical Adenopathy Extremities: No Edema Skin: No Rash or Ulcers Neurological: Alert and Oriented x 3 Result Diagrams: 07/04/16 16:22 07/06/16 05:19 Additional Lab and Data: Microbiology and Other Data: Microbiology 07/05/16 15:50 Urine Culture - Preliminary Urine Enterococcus Faecalis Assess/Plan/Problems-Billing Assessment: SVT in a 71 yo F with hx of SVT, HLD, diet-controlled DM, hypothyroidism - Patient Problems (1) SVT (supraventricular tachycardia) Current Visit: Yes Comment: Continue Cardizem 120 mg daily. Will hold Toprol for now with continued bradycardia. Dr. Mandujano would like to get stress test today with NSVT noted. Echo shows some diastolic dysfunction. Keep Mg and K repleted. May benefit from outpatient EP referral (2) Hypothyroidism Current Visit: Yes Comment: Continue home synthroid (3) HLD (hyperlipidemia) Current Visit: Yes Comment: Continue statin (4) Depression Current Visit: Yes Comment: Continue Zoloft (5) DVT prophylaxis Current Visit: Yes Comment: Lovenox (6) Full code status Current Visit: Yes Status and Disposition: Potential discharge later today
[2016-07-06] MEDS: Diltiazem CD CAP* 120 MG PO SCH (18:27)
--- NOTE | 2016-07-07 06:44 | DS ---
CC: Dr. Cesilia Suazo; Dr. Vahid Mandujano DISCHARGE SUMMARY: DATE OF ADMISSION: 07/04/16 DATE OF DISCHARGE: 07/06/16 PRIMARY CARE PHYSICIAN: Dr. Cesilia Suazo. PRINCIPAL DISCHARGE DIAGNOSIS: Supraventricular tachycardia. SECONDARY DIAGNOSES: 1. Diet-controlled diabetes. 2. Hyperlipidemia. 3. Hypothyroidism. 4. Depression. CONSULTANTS DURING HOSPITALIZATION: Dr. Vahid Mandujano, Cardiology. DISCHARGE MEDICATION REGIMEN: 1. Diltiazem CD 120 mg by mouth at bedtime. 2. Metoprolol succinate 12.5 mg by mouth 2 times daily. 3. Zoloft 75 mg by mouth daily. 4. Atorvastatin 20 mg by mouth daily. 5. Dulera 2 puffs inhaled 2 times daily. 6. Synthroid 50 mcg by mouth daily. 7. Albuterol 2 puffs inhaled 4 times daily as needed for shortness of breath or wheezing. 8. Albuterol nebulizer 2.5 mg inhaled 4 times daily as needed for shortness of breath or wheezing. 9. Flonase 2 sprays both nares daily. 10. Ipratropium 0.03% both nares 4 times daily as needed for congestion. STUDIES DONE DURING HOSPITALIZATION: Transthoracic echocardiogram, conclusion: Mild concentric LVH. Estimated ejection fraction is 60% to 65%. Abnormal left ventricular diastolic filling is observed consistent with impaired relaxation. The left atrium is [id number] dilated. The aortic valve leaflets are mildly thickened. There is systolic bowing of the mitral valve without evidence of prolapse. There is [id number] mitral regurgitation. There is mild pulmonic regurgitation. There is evidence of pulmonary hypertension. HISTORY OF PRESENT ILLNESS AND HOSPITAL SUMMARY: Please see my full history and physical for full details. Briefly, Ms. Bermudez is a 71-year-old female with past medical history of SVT and medical history as stated above, who presented to the hospital with palpitations that persisted. The patient was found to be in SVT. She received adenosine in the emergency room with resolution of the SVT ; however, she quickly fell back into the rhythm. She received additional adenosine as well as IV metoprolol with little improvement. Dr. Mandujano was consulted and saw the patient in the emergency room where she received IV diltiazem and was started on a drip with conversion back to normal sinus rhythm. The patient was initially continued on diltiazem drip and weaned off and transitioned to a pill. She was also continued on the lower dose of home metoprolol. Following day, she had persistent bradycardia and dizziness when standing. Metoprolol was initially held and diltiazem was continued. The following day, the patient had some NSVT. Due to this, Dr. Mandujano felt that it would be beneficial to get the patient a stress test while she was here. She underwent an exercise stress echo, which did not show any concerning abnormalities; however, it was noted that her blood pressure became quite elevated. He felt that the patient may have been beginning to withdraw from her high dose of outpatient metoprolol, so decision was made to start her back on a very low dose of 12.5 mg of Toprol twice a day in addition to the diltiazem. The patient was ambulating around the unit on the day of discharge with no issues, however, still had some mild dizziness when she was standing still. She was encouraged to take it easy for the next few days and avoid caffeine. She will follow up with Dr. Mandujano as an outpatient as well as with her PCP. TIME SPENT: Total time spent on this discharge 45 minutes. This is a summary of the hospitalization. Please see the full medical record for further details. [id number]/[facility] #: [id number] [facility]ENTER[facility]
== END 2016-07-06 18:55 | disposition home or self-care (01) | DRG 309 ==
LOC: ED 15:54 → MEDTELE 17:21 → OBSVTOIN 07-05 10:00
PROVIDERS: ADMIT Hospitalist; ATTEND Hospitalist
DX: I47.1 Supraventricular tachycardia (principal); E87.2 Acidosis; E11.9 Type 2 diabetes mellitus without complications; I27.2 Other secondary pulmonary hypertension; E78.5 Hyperlipidemia, unspecified; E03.9 Hypothyroidism, unspecified; F32.9 Major depressive disorder, single episode, unspecified; I51.7 Cardiomegaly; I37.1 Nonrheumatic pulmonary valve insufficiency; I34.0 Nonrheumatic mitral (valve) insufficiency; Z82.49 Family history of ischemic heart disease and other diseases of the circulatory system; Z83.3 Family history of diabetes mellitus; Z80.51 Family history of malignant neoplasm of kidney; I10 Essential (primary) hypertension; R00.1 Bradycardia, unspecified; Z87.891 Personal history of nicotine dependence; J45.909 Unspecified asthma, uncomplicated
CPT/HCPCS: 36415; 80053; 81003; 81015; 82248; 82550; 82553; 83605; 83690; 83735; 83880; 84443; 84484; 85025; 85379; 85610; 85730; 86140; 87077; 87086; 87186; 93005; 93306; A9270-GY; G0378; J0153; J1650

== ENCOUNTER 2016-12-21 08:51 | Emergency (ER) | payer MEDICARE, OTHER ==
[2016-12-21 09:05] VITALS: BP 134/78
--- NOTE | 2016-12-21 10:04 | UC ---
Respiratory Complaint HPI - HPI Summary HPI Summary: 2 WEEKS OF COUGH, CONGESTION AND SINUS PRESSURE. HAS HAD CLEAR NASAL DRAINAGE BUT LAST NIGHT IT TURNED BROWN. NO FEVER. COUGH IS WORSE AT NIGHT TIME. KEEPS HER AWAKE. TRIED TO WAIT IT OUT BUT IT IS NOT IMPROVING. - History of Current Complaint Chief Complaint: UCRespiratory Stated Complaint: COUGH RESP ISSUE Time Seen by Provider: 12/21/16 10:03 Hx Obtained From: Patient Onset/Duration: Gradual Onset, Lasting Weeks, Still Present Timing: Constant Severity Initially: Moderate Severity Currently: Moderate Pain Intensity: 0 Pain Scale Used: 0-10 Numeric Character: Cough: Productive Aggravating Factors: Recumbent Position Alleviating Factors: Nothing Associated Signs And Symptoms: Positive: URI, Nasal Congestion, Hoarseness, Sinus Discomfort. Negative: Dyspnea, Fever, Pleuritic Chest Pain, Wheezing - Allergies/Home Medications Allergies/Adverse Reactions: Allergies Allergy/AdvReac Type Severity Reaction Status Date / Time No Known Allergies Allergy Verified 12/21/16 08:58 Home Medications: Home Medications Phenylephrine-Diphenhydramine- [Robitussin Cough & Cold D] 12/21/16 [History] PMH/Surg Hx/FS Hx/Imm Hx Endocrine History: Diabetes, Hypothyroidism Cardiovascular History: Cardiac Disease - SVT S/P ABLATION 08/2016 - Surgical History Surgical History: Yes Surgery Procedure, Year, and Place: 2007 small bowel obstruction. heart ablation - Family History Known Family History: Positive: Diabetes Family History: No FHx breast cancer - Social History Alcohol Use: None Substance Use Type: None Smoking Status (MU): Former Smoker When Did the Patient Quit Smoking/Using Tobacco: 2007 Review of Systems Constitutional: Negative ENT: Nasal Discharge Respiratory: Cough Cardiovascular: Negative Gastrointestinal: Negative All Other Systems Reviewed And Are Negative: Yes Physical Exam Triage Information Reviewed: Yes Appearance: Well-Appearing, No Pain Distress, Well-Nourished Vital Signs: Initial Vital Signs Temp 97.6 F 12/21/16 09:01 Pulse 72 12/21/16 09:01 Resp 18 12/21/16 09:01 BP 134/78 12/21/16 09:01 Pulse Ox 98 12/21/16 09:01 Vital Signs Reviewed: Yes Eyes: Positive: Conjunctiva Clear ENT: Positive: Hearing grossly normal, Pharynx normal, TMs normal Neck: Positive: Supple, Nontender, No Lymphadenopathy Respiratory: Positive: Lungs clear, No respiratory distress, No accessory muscle use, Decreased breath sounds Cardiovascular: Positive: RRR - OCCASIONAL ECTOPIC BEAT, Pulses Normal Abdomen Description: Positive: Soft Musculoskeletal: Positive: No Edema Neurological: Positive: Alert Psychological: Positive: Age Appropriate Behavior Skin: Negative: rashes UC Diagnostic Evaluation - Laboratory O2 Sat by Pulse Oximetry: 98 Respiratory Course/Dx - Differential Dx/Diagnosis Provider Diagnoses: ACUTE RHINOSINUSITIS/BRONCHOSPASM Discharge - Discharge Plan Condition: Stable Disposition: HOME Prescriptions: Albuterol HFA INHALER* [Ventolin HFA Inhaler*] 2 puff INH Q4H PRN #1 mdi PRN Reason: Shortness Of Breath Amoxicillin/Clavulanate TAB* [Augmentin TAB 875*] 875 mg PO BID #20 tab guaiFENesin/CODIEN 100MG-10MG* [Robitussin AC 100Mg-10Mg*] 5 - 10 ml PO Q6H PRN #150 ml MDD 40ML PRN Reason: Cough predniSONE TAB* [Deltasone TAB*] 40 mg PO DAILY #10 tab Patient Education Materials: Rhinosinusitis (ED), Bronchospasm (ED) Referrals: Cesilia Suazo MD [Primary Care Provider] - If Needed Additional Instructions: SEEK FOLLOW-UP HERE OR WITH YOUR PCP IF SYMPTOMS ARE NOT IMPROVING EXPECTED WITH TREATMENT.
== END 2016-12-21 10:31 | disposition home or self-care (01) ==
LOC: UCEAST 08:51
DX: J01.90 Acute sinusitis, unspecified (principal); J98.01 Acute bronchospasm; E11.9 Type 2 diabetes mellitus without complications; E03.9 Hypothyroidism, unspecified; I47.1 Supraventricular tachycardia; Z87.891 Personal history of nicotine dependence
CPT/HCPCS: 99212; G0463

== ENCOUNTER 2018-07-18 16:19 | Emergency (ER) | payer MEDICARE, OTHER ==
[2018-07-18 16:42] VITALS: BP 103/48
--- NOTE | 2018-07-18 17:01 | UC ---
Respiratory Complaint HPI - HPI Summary HPI Summary: 73-year-old woman comes in with a chief complaint of one week of upper respiratory tract infection symptoms. She's had a runny nose is gradually got into her chest and she's having chest congestion wheezing and shortness of breath. She also has fatigue. The shortness of breath is better with rest is worse with activity. She had a fever of 101 yesterday at home. She's not taken any [id number]-pqtybdg medications. No prior history of asthma but she has used albuterol when she had bronchitis in the past. - History of Current Complaint Chief Complaint: UCGeneralIllness Stated Complaint: CHEST CONGESTION, AND COUGH Time Seen by Provider: 07/18/18 16:46 Hx Last Menstrual Period: post menopause Pain Intensity: 1 - Allergies/Home Medications Allergies/Adverse Reactions: Allergies Allergy/AdvReac Type Severity Reaction Status Date / Time No Known Allergies Allergy Verified 12/21/16 08:58 Home Medications: Home Medications Metoprolol Tartrate 50 mg PO BID 07/18/18 [History Confirmed 07/18/18] PMH/Surg Hx/FS Hx/Imm Hx Previously Healthy: Yes Endocrine History: Hypothyroidism, Dyslipidemia - Surgical History Surgical History: Yes Surgery Procedure, Year, and Place: 2007 small bowel obstruction. heart ablation - Family History Known Family History: Positive: Diabetes Family History: No FHx breast cancer - Social History Alcohol Use: None Substance Use Type: None Smoking Status (MU): Former Smoker When Did the Patient Quit Smoking/Using Tobacco: 2007 Review of Systems All Other Systems Reviewed And Are Negative: Yes Constitutional: Positive: Fever, Chills, Fatigue Skin: Positive: Negative Eyes: Positive: Negative ENT: Positive: Nasal Discharge, Sinus Congestion Respiratory: Positive: Shortness Of Breath, Cough, Other - SEE HPI Cardiovascular: Positive: Other - PAIN WITH COUGH Gastrointestinal: Positive: Negative Motor: Positive: Negative Neurovascular: Positive: Negative Musculoskeletal: Positive: Negative. Negative: Edema Neurological: Positive: Negative Psychological: Positive: Negative Is Patient Immunocompromised?: No Physical Exam Triage Information Reviewed: Yes Appearance: No Pain Distress, Well-Nourished, Ill-Appearing - MILD Vital Signs: Initial Vital Signs Temp 98.5 F 07/18/18 16:35 Pulse 70 07/18/18 16:35 Resp 16 07/18/18 16:35 BP 103/48 07/18/18 16:35 Pulse Ox 97 07/18/18 16:35 Vital Signs Reviewed: Yes Eye Exam: Normal Eyes: Positive: Conjunctiva Clear ENT: Positive: Pharyngeal erythema, Nasal congestion, Nasal drainage Neck exam: Normal Neck: Positive: Supple Respiratory: Positive: No respiratory distress, Rhonchi - B/L Cardiovascular: Positive: RRR Musculoskeletal Exam: Normal Musculoskeletal: Positive: Strength Intact, ROM Intact, No Edema, Other: - NO CALF TENDERNESS Neurological: Positive: Alert Psychological Exam: Normal Psychological: Positive: Normal Response To Family, Age Appropriate Behavior Skin Exam: Normal Respiratory Course/Dx - Course Course Of Treatment: Patient Name: NHAN BEDOLLA Medical Record#: [id number] Ordering Physician: Reid Chi MD Acct.#: [id number] : 1945 Age: 73 Sex: F Location: [facility] Exam Date: 07/18/181655 ADM Status: REG ER Order Information: CHEST PA LAT 2 VWS Accession Number: [id number] CPT: 69942 INDICATION: Cough, congestion and fever. COMPARISON: Most recent comparison chest x-rays dated January 02, 2017 TECHNIQUE: PA and lateral views of the chest were obtained. FINDINGS: The heart and mediastinum are normal in size and contour. Similar to the prior chest x-ray, the lungs appear hyperaerated on the AP view. The lateral view the diaphragm are flattened and there is an increased retrosternal airspace. There are no new lung masses or focal consolidation. Visualized bones are normal for the patient's age. There is no radiographic evidence of free air beneath the diaphragm IMPRESSION: CHEST X-RAY APPEARANCE IS CONSISTENT WITH CHRONIC OBSTRUCTIVE PULMONARY DISEASE SIMILAR TO THE 2016 CHEST X-RAY WITHOUT RADIOGRAPHICALLY APPARENT ACUTE PULMONARY FINDINGS. <Electronically signed by Charlie Means MD in OV> 07/18/18 3424 I discussed the x-ray report with the patient and her daughter. The albuterol nebulizer did help some with her symptoms clinic. The plan is to treat her with Cayetano azithromycin and a short course of steroids and have her follow-up with primary care doctor. We discussed that if she gets any worse or any questions or concerns she needs to go the emergency department for further evaluation and treatment. - Differential Dx/Diagnosis Provider Diagnosis: Bronchitis with bronchospasm, COPD (chronic obstructive pulmonary disease) Discharge - Sign-Out/Discharge Documenting (check all that apply): Patient Departure All imaging exams completed and their final reports reviewed: Yes - Discharge Plan Condition: Stable Disposition: HOME Prescriptions: Azithromyxin CHRISTOPH (NF) [Z-Christoph (Zithromax) 250 mg tabs #6] 2 tab PO .TODAY, THEN 1 DAILY #6 tab predniSONE TAB* [Deltasone 20 MG TAB*] 40 mg PO DAILY #10 tab Patient Education Materials: Acute Bronchitis (ED), Bronchospasm (ED), COPD ( Chronic Obstructive Pulmonary Disease) (ED) Referrals: Cesilia Suazo MD [Primary Care Provider] - Additional Instructions: FOLLOW UP WITH YOUR DOCTOR IF NOT COMPLETELY IMPROVED. GET REEVALUATED SOONER FOR ANY WORSENING OF YOUR CONDITION OR ANY QUESTIONS OR CONCERNS. - Billing Disposition and Condition Condition: STABLE Disposition: Home
[2018-07-18] MEDS ORDERED: Albuterol 2.5 MG/3 ML NEB.SOL* (0.083%) INH ONE (17:26)
== END 2018-07-18 18:23 | disposition home or self-care (01) ==
LOC: UCEAST 16:19
DX: J44.9 Chronic obstructive pulmonary disease, unspecified (principal); J98.01 Acute bronchospasm; Z87.891 Personal history of nicotine dependence
CPT/HCPCS: 71046; 99212; G0463

== ENCOUNTER 2019-05-12 08:35 | Day surgery (SDC) | payer MEDICARE, OTHER ==
[~2019-05-12 08:35] MED LIST: Acetaminophen TAB* 325 MG PO PRN; Buffered Lidocaine 1% SYRIN* 1 ML/SYRINGE INTRADERM ONE
[2019-05-12] MEDS ORDERED: Midazolam* 1 MG/ML 2 ML VIAL (2 MG) ONE (09:07)
[2019-05-12] MEDS ORDERED: fentaNYL* 50 MCG/ML 2 ML VIAL (100 MCG VIAL) ONE (09:34)
[2019-05-12 10:01] VITALS: BP 116/53
--- NOTE | 2019-05-12 10:50 | OP ---
DATE OF OPERATION/DATE OF DICTATION: 05/12/2019. DATE OF : 1945. SURGEON: Dr. Justcie Valladares. TEA TASTER: None. ANESTHESIA: Topical with intravenous sedation. PRE-OP DIAGNOSIS: Cataract, left eye. POST-OP DIAGNOSIS: Cataract, left eye. OPERATIVE PROCEDURE: Phacoemulsification and cataract extraction with posterior chamber intraocular lens implant, left eye. COMPLICATIONS: None. BLOOD LOSS: None. OPERATIVE FINDINGS: The patient was brought to the operating room and received a small amount of int ravenous sedation. A drop of Tetracaine was placed in her left eye. She was prepped and draped in t he usual sterile fashion for ophthalmic surgery and attention was directed to the left eye where a sp eculum was placed. A paracentesis was created at the 5 o'clock position and 0.1 cc of 1 percent pres ervative-free Lidocaine was injected into the anterior chamber followed by DisCoVisc. The eye was di gitally stabilized while a 2.75 mm keratome was used to create a triplanar clear corneal incision at the 3 o'clock position. A continuous curvilinear capsulorrhexis was created with a cystotome and Utr veronique forceps. BSS on a cannula was used to hydrodissect the lens from the capsule. Phacoemulsificati on was performed in a clisjt-jvd-sfydyhh technique to create four fragments which were removed. Resi dual cortical material was removed with irrigation and aspiration. DisCoVisc was used to inflate the capsular bag and an AUOOTO 17.5 diopter lens was folded and inserted into the capsular bag. DisCoVis c was removed using irrigation and aspiration. BSS on a cannula was used to hydrate the corneal stro ma and seal the wound. At the end of the case the pupil was round and the lens was centered. The eye was of normal pressure and the wound was water tight. The speculum was removed and topical Maxitrol ointment was placed on the surface of the eye. The eye was closed, patched and shielded and the pat ient was sent to the recovery room in stable condition with post operative instructions and follow-up appointment given. [id number]/[facility] #: [id number]
[2019-05-12] MEDS ORDERED: Cyclopentolate 1% OPTH.SOL* 2 ML BTL ONE (11:09)
[2019-05-12] MEDS ORDERED: Lidocaine 1% MPF ** 5 ML VIAL ONE (11:09)
[2019-05-12] MEDS ORDERED: Phenylephrine OPHTH SOL 2.5%* 2 ML ONE (11:09)
[2019-05-12] MEDS ORDERED: Tropicamide 1% OPTH.SOL* BTL ONE (11:10)
[2019-05-12] MEDS ORDERED: Neomycin/Polymy/Dex OPHTH.OIN* 3.5 GM ONE (11:10)
[2019-05-12] MEDS ORDERED: Tetracaine 0.5% OPTH.SOL 4 ML* 1 DROP BTL ONE (11:10)
[2019-05-12] MEDS ORDERED: Ketorolac 0.5% OPHTH (NF) 0.5 % 5 ML BTL ONE (11:10)
[2019-05-12] MEDS ORDERED: Phenylephr/Ketorolac 1%/0.3% OPH DROP BTL ONE (11:11)
== END 2019-05-12 10:13 | disposition home or self-care (01) ==
LOC: OREAST 08:35
PROVIDERS: ATTEND Ophthalmology
DX: H25.042 Posterior subcapsular polar age-related cataract, left eye (principal); E11.9 Type 2 diabetes mellitus without complications; Z79.84 Long term (current) use of oral hypoglycemic drugs; R00.2 Palpitations; E78.00 Pure hypercholesterolemia, unspecified; F32.9 Major depressive disorder, single episode, unspecified; J45.909 Unspecified asthma, uncomplicated; I27.20 Pulmonary hypertension, unspecified
CPT/HCPCS: A9270-GY; J1097; J2250; J3010; V2632